=== PATIENT | female | born 1950 | race Caucasian/White ===

== ENCOUNTER → 2016-05-16 | Outpatient (CLI) | payer BC | END | disposition home or self-care (01) | LOC: THER.SSS 11:13 | DX: E86.0 Dehydration (principal); R55 Syncope and collapse ==

== ENCOUNTER → 2016-07-26 | Outpatient (CLI) | payer BC | END | disposition home or self-care (01) | LOC: RAD.S 12:58 | DX: Z12.31 Encounter for screening mammogram for malignant neoplasm of breast (principal) ==